=== PATIENT | male | born 1985 | race Hispanic/Latino ===

== ENCOUNTER 2016-12-07 21:24 | Emergency (ER) | payer OTHER ==
[2016-12-07] MEDS ORDERED: Lidocaine 1% 20 ML MDV ONE (21:51)
[2016-12-07] MEDS ORDERED: Adacel (T-DAP) 0.5 ML VIAL ONE (21:53)
[2016-12-07] MEDS ORDERED: Triple Antibiotic Oint 1 GM Packet ONE (22:10)
== END 2016-12-07 22:45 | disposition home or self-care (01) ==
LOC: NAV ERS 21:24
DX: S01.111A Laceration without foreign body of right eyelid and periocular area, initial encounter (principal); W51.XXXA Accidental striking against or bumped into by another person, initial encounter; Y93.66 Activity, soccer
CPT/HCPCS: 12013; 90471; 90715; J2001